=== PATIENT | female | born 1990 | race African-American/Black ===

== ENCOUNTER → 2024-08-02 11:33 | Outpatient (CLI) | payer OTHER, SELFPAY ==
[2024-08-02 12:03] LABS: Add Manual Diff / Slide Review NO; Basophils Absolute Auto 0 /uL (0-100); Basophils Percent Auto 0.7 % (0-2); Eosinophils Absolute Auto 100 /uL (0-450); Eosinophils Percent Auto 2.5 % (2-4); Hematocrit 36.8 % (36-46); Hemoglobin 12.4 g/dL (12.0-16.0); Lymphocytes Absolute Auto 2200 /uL (1100-4500); Lymphocytes Percent Auto 40.4 % (25-40); Mean Corpuscular HGB Conc 33.7 % (30-36); Mean Corpuscular Hemoglobin 28.4 PG (26-34); Mean Corpuscular Volume 84.5 fL (80-100); Monocytes Absolute Auto 300 /uL (0-900); Monocytes Percent Auto 5.6 % (3-14); Neutrophils Absolute Auto 2800 /uL (1500-7000); Neutrophils Percent Auto 50.8 % (50-75); Platelet Count 245 X10^3/uL (150-400); Red Blood Cell Count 4.36 X10^6/uL (4.0-5.2); Red Cell Distribution Width 14.2 % (11.6-14.8); White Blood Cell Count 5.5 X10^3/uL (4.5-11.0)
[2024-08-02 12:24] LABS: HEMOLYSIS < 15 (0-50); Iron 69 ug/dL (37-170)
[2024-08-02 12:27] LABS: Alanine Aminotransferase 19 IU/L (<35); Albumin 4.3 g/dL (3.5-5.0); Albumin Globulin Ratio 1.4 (1.0-2.8); Alkaline Phosphatase 59 U/L (38-126); Aspartate Aminotransferase 21 IU/L (14-36); BUN Creatinine Ratio 13.4 (6-22); Bilirubin Total 0.6 mg/dL (0.2-1.3); Blood Urea Nitrogen 11 mg/dL (7-17); Calcium 9.7 mg/dL (8.4-10.2); Carbon Dioxide 29 mmol/L (22-32); Chloride 103 mmol/L (98-107); Cholesterol 195 mg/dL (140-199); Estimated Glomerular Filt Rate > 60 mL/min (>60); Glucose 88 mg/dL (70-100); HDL Cholesterol 46 mg/dL (40-60); HEMOLYSIS < 15 (0-50); LDL Cholesterol Calculated 129 mg/dL (<100); Potassium 4.5 mmol/L (3.4-5.1); Sodium 138 mmol/L (137-145); Total Protein 7.3 g/dL (6.3-8.2); Triglycerides 98 mg/dL (35-150)
[2024-08-02 12:35] LABS: Percent Iron Saturation 20 % (15-50); Total Iron Binding Capacity 352 ug/dL (265-497); Transferrin 279 mg/dL (206-381)
[2024-08-02 12:43] LABS: Follicle Stimulating Hormone 4.41 mIU/mL
[2024-08-02 12:45] LABS: Prolactin 10.2 ng/mL (3.0-18.6)
[2024-08-02 12:56] LABS: TSH w/ Reflex to FT4 1.09 uIU/mL (0.47-4.68)
[2024-08-02 13:03] LABS: Ferritin 48 ng/mL (6-137)
== END ==
PROVIDERS: PCP Family Medicine; Referring Provider Family Medicine; Visit Provider Family Medicine
DX: E78.5 Hyperlipidemia, unspecified (principal); N93.9 Abnormal uterine and vaginal bleeding, unspecified; R53.83 Other fatigue; G47.9 Sleep disorder, unspecified; Z86.39 Personal history of other endocrine, nutritional and metabolic disease
CPT/HCPCS: 36415; 80053; 80061; 82728; 83001; 83002; 83540; 83550; 84146; 84443; 85025

== ENCOUNTER → 2024-08-23 10:53 | Outpatient (CLI) | payer OTHER, SELFPAY ==
--- NOTE | 2024-08-23 10:56 | DI.US.S_ITS ---
PROCEDURE: US PELVIC COMPLETE INDICATIONS: ABNORMAL UTERINE BLEEDING TECHNIQUE: Real-time scanning was performed of the pelvic organs, with image documentation. Additional endovaginal scanning was necessary due to incomplete visualization of the adnexal and endometrial structures by transabdominal scanning. Forty-four images and 3 cine series. COMPARISON: None. FINDINGS: Uterus: Uterus is retroverted and normal in size at 7.2 x 5.7 x 4.5 cm. The myometrium is heterogeneous. The endometrium echo complex measures 11 mm combined thickness. Heterogeneous echogenicity of the uterine myometrium possible 2.9 x 2.0 x 1.5 centimeter myometrial leiomyoma. Ovaries: The right ovary measures 4.1 x 1.7 x 1.6 cm, with a calculated ovarian volume of 5.9 cc. The left ovary measures 3.0 x 2.2 x 1.7 cm, with a calculated ovarian volume of 5.7 cc. The ovaries have a normal sonographic appearance. Greater than than 12 follicles can be seen in each ovary which is nonspecific but could be an indication of polycystic ovary syndrome in the appropriate clinical setting. No ultrasound evidence of adnexal mass. Other: No pathologic free abdominal or pelvic fluid. 1 centimeter hypoechoic round structure, nabothian cyst in the cervix. IMPRESSION: Possible 2.9 centimeter myometrial leiomyoma anterior mid uterus. Greater than 12 follicles bilaterally possible polycystic ovary syndrome. 1 centimeter hypoechoic structure in the cervix commonly nabothian cyst. We strive to produce accurate, complete, and clear reports of imaging services. To assist us in improving patient care, this report was composed using standard report templates and voice recognition software. Therefore, it may contain abnormal punctuation, insertions and/or omissions. Occasional wrong-word or sound-alike substitutions may occur. Though we review the report and make efforts to correct it, we do recommend that the report be read carefully in proper context to recognize any text inaccuracies. Dictated by: Scooby Allen M.D. on 08/24/2024 at 9:07 Approved by: Scooby Allen M.D. on 08/24/2024 at 9:28
== END ==
LOC: US 10:55
PROVIDERS: PCP Family Medicine; Referring Provider Family Medicine; Visit Provider Family Medicine
DX: N93.9 Abnormal uterine and vaginal bleeding, unspecified (principal)
CPT/HCPCS: 76830; 76856

== ENCOUNTER → 2024-08-24 10:49 | Outpatient (CLI) | payer OTHER, SELFPAY | LOC: LAB 10:51 | PROVIDERS: PCP Family Medicine; Visit Provider Obstetrics & Gynecology | DX: N89.8 Other specified noninflammatory disorders of vagina (principal) | CPT/HCPCS: 87480; 87510; 87660 ==

== ENCOUNTER → 2024-11-22 08:52 | Outpatient (CLI) | payer OTHER, SELFPAY ==
[2024-11-22 10:54] LABS: Free T4, Direct Thyroxine 0.76 ng/dL (0.78-2.19)
[2024-11-22 15:13] LABS: Progesterone, Total 6.91 ng/mL
== END ==
PROVIDERS: PCP Family Medicine; Referring Provider Obstetrics & Gynecology; Visit Provider Obstetrics & Gynecology
DX: N92.6 Irregular menstruation, unspecified (principal)
CPT/HCPCS: 36415; 84144; 84439

== ENCOUNTER → 2025-02-01 13:16 | Outpatient (CLI) | payer OTHER, SELFPAY ==
[2025-02-01 14:23] LABS: Free T4, Direct Thyroxine 0.74 ng/dL (0.78-2.19)
[2025-02-01 14:37] LABS: Thyroid Stimulating Hormone 1.79 uIU/mL (0.47-4.68)
== END ==
PROVIDERS: PCP Family Medicine; Referring Provider Obstetrics & Gynecology; Visit Provider Obstetrics & Gynecology
DX: N92.6 Irregular menstruation, unspecified (principal)
CPT/HCPCS: 36415; 84439; 84443

== ENCOUNTER → 2025-02-09 09:07 | Outpatient (CLI) | payer OTHER, SELFPAY ==
[2025-02-09 10:32] LABS: Progesterone, Total 1.11 ng/mL
[2025-02-09 11:13] LABS: HCG Quantitative /Beta subunit < 2.39 mIU/mL
== END ==
PROVIDERS: PCP Family Medicine; Referring Provider Obstetrics & Gynecology; Visit Provider Obstetrics & Gynecology
DX: N92.6 Irregular menstruation, unspecified (principal)
CPT/HCPCS: 36415; 84144; 84702